=== PATIENT | female | born 1960 | race Caucasian/White ===

== ENCOUNTER 2018-05-12 09:36 | Emergency (ER) | payer BC, SELFPAY ==
[2018-05-12 09:39] VITALS: BP 108/71; PULSE 90; RESP 14; TEMP 36.3; O2SAT 98
--- NOTE | 2018-05-12 10:44 | DI.CT_ITS ---
SYMPTOMS/DIAGNOSIS: ANTERIOR NECK AND SHOULDER PAIN, DIFFICULTY SWALLOWING CERVICAL CT: CT examination of the cervical region was performed with intravenous infusion of 100 cc's of Omnipaque 350. Images obtained through the lung apices show clear lungs and unremarkable appearance of visualized mediastinal structures. No vascular abnormality identified in superior mediastinum or cervical region. The [place] vasculature appears intact. The orbits and temporal bone structures are unremarkable. No intracranial abnormality in the visualized portions of the brain. No cervical mass or adenopathy seen. The epiglottis and aryepiglottic folds appears intact. There is loss of fat planes in the supraglottic region and suggestion of diffuse soft tissue swelling in the supraglottic region raises the possibility of supraglottitis. The trachea is unremarkable in appearance. The vocal cords appear closed. CONCLUSION: Findings raising the possibility of supraglottitis. No evidence of epiglottitis.
[2018-05-12] MEDS: Omnipaque 350 MG/ML 100 ML BTL IV (11:08)
[2018-05-12 11:11] LABS: Abs Immature Grans 0.05 k/cumm (0.0-0.09); Absolute Eosinophil Count 0.05 k/cumm (0.0-0.7); Absolute Lymphocyte Count 3.23 k/cumm (1.2-3.4); Absolute Neutrophil Count 9.19 k/cumm (1.2-6.7); Basophils % 0.1; Eosinophils % 0.4; HCT 42.7 % (36.0-46.0); HGB 14.2 g/dL (12.0-15.5); Immature Grans % 0.4; Lymphocytes % 24.2; Mean Corp. HGB Concentration 33.3 g/dL (32.0-36.0); Mean Corpuscular Volume 96.2 fL (80-95); Mean Platelet Volume 10.5 fL (8.0-11.0); Neutrophils % 68.9; Platelet Count 280 x1000/uL (130-400); RBC 4.44 m/cumm (4.00-5.20); White Blood Cell Count 13.34 k/cumm (4.4-10.8)
[2018-05-12 11:18] LABS: Absolute Basophil Count 0.01 k/cumm (0.0-0.2)
[2018-05-12 11:37] LABS: ALT 34 U/L (12-78); AST 21 U/L (15-37); Alkaline Phosphatase 127 U/L (46-116); Anion Gap 9.1 mmol/L (3-11); BUN 11 mg/dL (7-18); Bilirubin, Total 0.6 mg/dL (0.2-1.0); CO2 28.9 mmol/L (21.0-32.0); CREATININE 0.67 mg/dL (0.55-1.02); Calcium 9.1 mg/dL (8.5-10.1); Chloride 101 mmol/L (98-107); Glucose 115 mg/dL (70-100); Potassium 4.2 mmol/L (3.5-5.1); Sodium 139 mmol/L (136-145); TSH 1.05 uIU/mL (0.358-3.74); Total Protein 8.2 g/dL (6.4-8.2)
[2018-05-12 11:40] LABS: Troponin I < 0.02 ng/mL (0.00-0.06)
--- NOTE | 2018-05-12 12:56 | W.ED.GENAD ---
Discharge Plan Disposition Patient Disposition: HOME Condition: Good Discharge Details Chief Complaint: Nk/Back Pain Clinical Impression: Supraglottitis, Biphasic anterior T wave inversion Primary Care Provider: Adrian Parkinson ED Provider: Frederick Phoenix Home Meds and New Rx's Prescriptions: New clindamycin HCl 150 mg capsule 450 mg PO TID 10 Days Qty: 90 RF: 0 Discharge Instructions Instructions: Laryngitis (ED) Additional Instructions: Please go directly to [facility]. Please go to Dr. Gonzalez's office, they are waiting for you. We will also be setting up cardiology follow-up on an outpatient basis for you. If you notice any worsening of your symptoms, or any new symptoms such as difficulty swallowing, difficulty breathing vomiting, diarrhea, fever, chills, shortness of breath, chest pain, numbness, weakness, or fainting , please return immediately to the emergency department for reevaluation. Please follow up with your primary care provider as soon as possible for reassessment and reevaluation. As always, it was a pleasure participating in your medical care today. Discharge Data Discharge Date/Time-TO BE ENTERED AT DEPARTURE: 05/12/18 13:30 Medical Decision Making This is a very pleasant 57-year-old female who presents for evaluation of neck and shoulder pain, gradually worsening, eventually leading to mild difficulty and pain with swallowing. Physical exam demonstrates a well-appearing female, no signs of respiratory distress. She has no stridorous breath sounds, no difficulty breathing, and no change in her phonation. She demonstrates no evidence of a hot potato voice, and no signs of airway compromise. She is controlling her secretions well. Physical exam demonstrates no other significant abnormalities otherwise. Differential was initially broad, atypical cardiac etiology was considered as well as potential acute neck pathology. Laboratory workup did demonstrate a mildly elevated white count at 13.3, electrolytes, sodium, renal function, and troponin as well as TSH were all normal. CT scan was ordered and per radiology does demonstrate evidence of supraglottitis. In the setting of the patient's elevated white count, her pain with swallowing, her subjective symptoms, and the CT findings I do feel that this is the most likely etiology for her symptoms. We did contact Dr. Gonzalez and Tucker and discussed the case with him. We will give a dose of clindamycin here, and he recommends that the patient be sent over immediately to his office for scoping and evaluation. With no signs of respiratory distress, normal vital signs, no signs of airway compromise, I feel that this is certainly reasonable and that the patient is safe to transport herself. The patient is requesting transport herself and does not want an EMS transport. Patient will drive directly to [place], I showed the patient exactly on the map work to go and she has a history at [place], and knows the office location well. I have extensively reviewed the treatment plan and discharge instructions with the patient. I have addressed all patient concerns at this time. The patient was made aware of what symptoms to monitor for that would warrant a return to the emergency department. Discussed the plan with the patient, they demonstrate verbal understanding and agreement with our assessment and plan at this time. Additionally the patient's troponin was normal, EKG was ordered and did demonstrate evidence of biphasic T waves. Although I feel the patient symptomatology correlates well with her supraglottitis, the EKG findings did elicit some concern for potential Wellons on EKG. I contacted [facility], and discussed the case with Dr. Kim. I discussed the patient's laboratory workup, I sent him via secure text message the image of the EKG which she personally reviewed, as well as discussed the patient's clinical scenario, and her signs and symptoms concerning for supraglottitis. With all factors discussed, Dr. Suh does feel that these biphasic T waves are a nonspecific abnormality and not related to a well in syndrome especially in light of the patient's current clinical scenario. I do agree with this is the patient has no chest pain, no shortness of breath, no chest pressure, no significant cardiac risk factors. Her heart score is less than 3. Dr. Kim does recommend outpatient cardiology follow-up, but no acute component at this time. I have discussed this with case management we will get her cardiology follow-up. 12: 10 EKG rate 70, intervals normal, sinus rhythm, biphasic T waves noted in V2, V3, V4, V5, and V6. No ST elevations or depressions. No significant Q waves. HPI General Date/Time Provider Initiated Documentation: 05/12/18 10:08. 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 She presents today for evaluation of neck pain and difficulty swallowing. 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 She had no associated chest tightness, shortness of breath, pleuritic chest pain, or chest heaviness. The pain symptoms continued throughout the next 24-48 hours and gradually worsened, radiating towards her anterior neck. Fortunately this morning when she woke up she was noticing a mild increase in pain/difficulty swallowing. This did increase her concerned and she came to the ER for evaluation. She denies any difficulty eating or drinking, and has no difficulty getting her secretions down. The patient denies any cough, or any other cardiac or chest complaints. She denies any exertional component of her symptoms. She denies any fever or chills. She has no other complaints at this time. She denies any previous recent surgeries, she denies any IV or illicit drug use. Related Data Home Medications Medication Instructions Recorded Confirmed clindamycin HCl 450 mg PO TID 10 Days #90 cap 05/12/18 Previous Rx's Medication Instructions Recorded clindamycin HCl 450 mg PO TID 10 Days #90 cap 05/12/18 Allergies Allergy/AdvReac Type Severity Reaction Status Date / Time phenytoin Allergy Intermediate Unverified 01/09/18 09:17 General Stated Complaint: Nk/Back Pain OSVALDO: 2 Review of Systems Review of Systems All systems reviewed & are unremarkable except as noted in HPI and below PFSH Family History Mother Neoplasm Father Neoplasm Sister No problems noted. Brother Heart disease Brother No problems noted. Brother No problems noted. Brother No problems noted. Brother Depression Brother Essential hypertension Brother Essential hypertension Grandfather Heart disease Grandfather Heart disease Grandmother Heart disease Grandmother No problems noted. Sister Parkinson's disease Medical History Elevated fasting glucose Tobacco dependence Social History Smoking/Tobacco Use Status: Current every day Surgical History Cholecystectomy (08/04/16) FOOT SURGERY (~1970) Tooth extraction Exam Narrative Exam Narrative: 1.Const: Well-nourished, Well-developed, appearing stated age 2.Eyes: PERRL, no conjunctival injection, and symmetrical lids. 3.ENT: Atraumatic external nose and ears. Moist MM. Neck: Symmetric, trachea midline, No thyromegaly. No significant tenderness on exam, no significant crepitus. No evidence of Anton's angina. Patient demonstrates good movement of cervical neck. There is no nuchal rigidity, no nuchal tenderness. Patient is able to flex the neck without any difficulty or significant pain. Negative Kernig's and Brudzinski sign. 4.CVS: +S1/S2, No murmurs or gallops. Peripheral pulses 2+ and equal in all extremities. Brisk capillary refill in all extremities. 5.RESP: Unlabored respiratory effort. Clear to auscultation bilaterally. No wheezes rales or rhonchi 6.GI: Soft, Nontender/Nondistended, No hepatosplenomegaly. No guarding or rebound. 7.MSK: Normocephalic/Atraumatic, Extremities w/o deformity or ttp No cyanosis or clubbing, Normal movement of all extremities 8.Skin: Warm, Dry. No rashes or lesions. 9.Neuro: health unit coordinator II-XII grossly intact. Sensation grossly intact, no focal neurologic deficits. 10.Psych: (AAO) x3. Appropriate mood and affect Course Vital Signs Temperature 36.3 C L 05/12/18 09:39 Pulse 90 05/12/18 09:39 Respiratory Rate 14 05/12/18 09:39 Blood Pressure 108/71 05/12/18 09:39 Pulse Oximetry 98 05/12/18 09:39 Temperature 36.3 C L 05/12/18 09:39 Temperature Source Temporal Artery Scan 05/12/18 09:39 Pulse 90 05/12/18 09:39 Respiratory Rate 14 05/12/18 09:39 Respiratory Effort 05/12/18 11:29 Blood Pressure 108/71 05/12/18 09:39 Blood Pressure Position Sitting 05/12/18 09:39 Pulse Oximetry 98 05/12/18 09:39 Oxygen Delivery Method Room Air 05/12/18 09:39 Oxygen Flow Rate 0 05/12/18 09:39 Pain Level 7 05/12/18 09:39 Lab/Test Results Lab/Test Results: Laboratory Tests Range/Units 05/12/18 05/12/18 11:06 11:06 WBC (4.4-10.8) k/cumm 13.34 H RBC (4.00-5.20) m/cumm 4.44 Hgb (12.0-15.5) g/dL 14.2 Hct (36.0-46.0) % 42.7 MCV (80-95) fL 96.2 H MCH (27.0-33.0) pg 32.0 MCHC (32.0-36.0) g/dL 33.3 RDW (11.7-14.6) % 14.0 Plt Count (130-400) x1000/uL 280 MPV (8.0-11.0) fL 10.5 Immature Gran % 0.4 Neutrophils % 68.9 Lymphocytes % 24.2 Monocytes % 6.0 Eosinophils % 0.4 Basophils % 0.1 Absolute Neutrophils (1.2-6.7) k/cumm 9.19 H Absolute Lymphocytes (1.2-3.4) k/cumm 3.23 Absolute Monocytes (0.11-0.7) k/cumm 0.80 H Absolute Eosinophils (0.0-0.7) k/cumm 0.05 Absolute Basophils (0.0-0.2) k/cumm 0.01 Sodium (136-145) mmol/L 139 Potassium (3.5-5.1) mmol/L 4.2 Chloride (98-107) mmol/L 101 Carbon Dioxide (21.0-32.0) mmol/L 28.9 Anion Gap (3-11) mmol/L 9.1 BUN (7-18) mg/dL 11 Creatinine (0.55-1.02) mg/dL 0.67 Estimated GFR/1.73 m2 (mL/min/1.73m2) >= 60.00 Glucose (70-100) mg/dL 115 H Calcium (8.5-10.1) mg/dL 9.1 Total Bilirubin (0.2-1.0) mg/dL 0.6 AST (15-37) U/L 21 ALT (12-78) U/L 34 Alkaline Phosphatase (46-116) U/L 127 H Troponin I (0.00-0.06) ng/mL < 0.02 Total Protein (6.4-8.2) g/dL 8.2 Albumin (3.4-5.0) g/dL 4.0 TSH (0.358-3.74) uIU/mL 1.05
[2018-05-12] MEDS: Clindamycin 150 MG CAP 450 MG PO (13:07)
[2018-05-12 13:10] VITALS: BP 108/71; PULSE 90; RESP 14; TEMP 36.3; O2SAT 98
--- NOTE | 2018-05-15 08:41 | PDOC.ERCMPRO ---
Care Management Progress Note 05/15-Dr. Phoenix requested assistance with a cardiology f/u in one month for biphasic T wave. Referral faxed to cardiology this am.
== END 2018-05-12 13:30 | disposition home or self-care (01) ==
PROVIDERS: Emergency Provider Student in an Organized Health Care Education/Training Program; PCP Family Medicine
DX: J04.30 Supraglottitis, unspecified, without obstruction (principal); R94.31 Abnormal electrocardiogram [ECG] [EKG]; R13.10 Dysphagia, unspecified
CPT/HCPCS: 36415; 70491; 80053; 93005; 99285; 84443; 84484; 85025; 93010; J1885; J3490

== ENCOUNTER 2018-06-19 10:21 | Outpatient (CLI) | payer BC, SELFPAY | END 2018-06-19 10:41 | PROVIDERS: PCP Family Medicine; Visit Provider Internal Medicine Interventional Cardiology | DX: R94.31 Abnormal electrocardiogram [ECG] [EKG] (principal); R00.2 Palpitations; F17.200 Nicotine dependence, unspecified, uncomplicated | CPT/HCPCS: 93005; 93010 ==

== ENCOUNTER 2018-07-11 03:00 | Outpatient (CLI) | payer BC, SELFPAY ==
--- NOTE | 2018-08-03 10:14 | ZIOP_ITS ---
ZIO PATCH INTERPRETATION DATE OF DICTATION August 03, 2018 INDICATION Palpitations. Total Analysis time - 12 days and 4 hours. Predominant underlying rhythm is sinus rhythm. Average heart rate during analysis time is 84 beats per minute. Minimum heart rate 50 beats per minute. Maximum heart rate 151 beats per minute. Rare isolated atrial ectopy. Rare isolated ventricular ectopy. No nonsustained VT. No significant pauses. No SVT or atrial fibrillation. 3 patient triggered events correspond to sinus rhythm. No diary entries. Overall sinus rhythm throughout with no significant tachy or bradyarrhythmias. Milli Garcia M.D. ADITI/earline T - 08/03/2018
== END 2018-07-11 03:20 ==
PROVIDERS: PCP Family Medicine; Visit Provider Internal Medicine Interventional Cardiology
DX: R00.2 Palpitations (principal); I49.1 Atrial premature depolarization; I49.3 Ventricular premature depolarization
CPT/HCPCS: 93225

== ENCOUNTER 2018-09-13 10:05 | Outpatient (CLI) | payer BC, SELFPAY | END 2018-09-13 10:25 | PROVIDERS: PCP Family Medicine; Visit Provider Internal Medicine Interventional Cardiology | DX: R94.31 Abnormal electrocardiogram [ECG] [EKG] (principal); F17.200 Nicotine dependence, unspecified, uncomplicated | CPT/HCPCS: 93005; 93010 ==

== ENCOUNTER 2019-01-17 01:16 | Outpatient (CLI) | payer BC, SELFPAY ==
[2019-01-17 08:26] LABS: Anion Gap 9.7 mmol/L (3-11); BUN 12 mg/dL (7-18); CO2 27.3 mmol/L (21.0-32.0); CREATININE 0.68 mg/dL (0.55-1.02); Calcium 8.7 mg/dL (8.5-10.1); Chloride 104 mmol/L (98-107); Glucose 106 mg/dL (70-100); Potassium 4.7 mmol/L (3.5-5.1); Sodium 141 mmol/L (136-145)
[2019-01-18 08:45] LABS: Hemoglobin A1C 6.1 % (4.5-6.2)
== END 2019-01-17 01:36 ==
PROVIDERS: PCP Family Medicine; Visit Provider Family Medicine
DX: R73.01 Impaired fasting glucose (principal)
CPT/HCPCS: 36415; 80048; 83036

== ENCOUNTER 2019-01-24 13:33 | Day surgery (SDC) | payer BC, SELFPAY ==
[2019-01-24 13:33] VITALS: BP 125/76; PULSE 96; RESP 18; TEMP 36.6; O2SAT 97
[2019-01-24] MEDS: Lidocaine 2% Pres-Free 5 ML VIAL (16:11)
--- NOTE | 2019-01-24 16:36 | W.PM.DSUDISC ---
Discharge Plan Disposition Patient Disposition: HOME Condition: Good Discharge Details Reason For Visit: Excision ganglion cyst RRF Attending Provider: Justus Oneill Primary Care Provider: Adrian Parkinson Home Meds and New Rx's Prescriptions: No Action No Known Home Meds RF: 0 Discharge Instructions Additional Instructions: keep dressings dry for 48 hours. After 48 hours, may remove dressings, shower or bathe and get incision wet. After 48 hours, leave incision uncovered if it is dry and sealed. Use R hand as much as discomfort allows you. Follow up with in 10-14 days. Take tylenol or ibuprofen, if needed for pain. Referrals: Justus Oneill MD [ [facility] STAFF PHYSICIAN] - (f/u in 10-14 days) Activity:: Activity as Tolerated Remove Dressings/Wound Care:: 48 hours Shower/Bathe:: 48 hours Diet:: As Tolerated Discharge Orders Discharge Orders: Discharge Order (Routine); Ordered 01/24/19 Ordered By: Justus Oneill DS: Diagnosis Discharge Diagnosis (1) Sebaceous cyst of finger of right hand: Status: Chronic (2) Ganglion cyst of finger: Status: Acute
--- NOTE | 2019-01-26 05:56 | ROE_ITS ---
REPORT OF OPERATIVE PROCEDURE DATE OF SURGERY January 24, 2019 PREOPERATIVE DIAGNOSIS Ganglion cyst, right ringer finger. POSTOPERATIVE DIAGNOSIS Ganglion cyst, right ringer finger. PROCEDURE Incision of ganglion cyst, right ring finger. ANESTHESIA Local infiltration 2% Xylocaine solution and 0.5% Marcaine with epinephrine solution. SURGEON Justus Oneill M.D. INDICATIONS This is a 58-year-old white female who developed a ganglion cyst on the dorsal radial aspect of her r ight ring finger several months ago. The cyst has been painful as it enlarged. It rubs against her mi ddle finger and causes discomfort. Excision of the cyst was recommended to alleviate her symptoms. Th e risks and complications of the procedure were explained to the patient in detail preop including po ssible damage to the radial digital nerve with dissection. DESCRIPTION OF PROCEDURE The patient was taken to the Operating Room on 01/24/19. She was placed supine on the operating table. The right hand was prepped and draped free in the usual sterile fashion. I infiltrated from the radia l side of the ring finger overlying the ganglion, which was about mid proximal phalanx with 2% Xyloca ine solution. I then infiltrate more proximal and more palmar to block the radial digital nerve. Once good anesthesia had been obtained, I made a longitudinal incision in the mid lateral line centered o tripp the ganglion cyst. The incision was about 1.5 inches in length. The [place] [facility] [place]. Blunt tip Littler scissors were then used to circumferentially expose the ganglion cyst. The ga nglion cyst was inadvertently perforated during dissection. There was normal ganglion fluid noted brittani t came from the cyst. The cyst was intermittently scared to the digital nerve and the digital nerve w as inadvertently cut during the dissection. The patient was immediately notified and I explained to er that I felt that this would provide little disability since it is just one half of the tip of the ring finger. Hemostasis was obtained with simple direct pressure after the ganglion cyst was entirely excised. The wound margins were infiltrated with 0.5% Marcaine with epinephrine solution and the ski n edges were approximated with three interrupted #4-0 Nylon sutures. The wound was dressed with Xerof orm gauze, sterile gauze, 4x4s, wrapped with a 2-inch cling bandage. The patient tolerated the proced ure well and was discharged to the Day Surgery unit in good condition. The patient was discharged home from the Day Surgery Unit with instructions to keep her dressings int act and dry for 48 hours. After 48 hours, she can remove her dressing, shower and get her incision we t. She can leave the incision uncovered when it is dry and sealed. She is encouraged to use her right hand as much as discomfort allows. She should take Tylenol or ibuprofen for pain. She will followup with Dr. Oneill in 10 to 14 days.
== END 2019-01-24 16:49 | disposition home or self-care (01) ==
PROVIDERS: PCP Family Medicine; Visit Provider Orthopaedic Surgery
PROC: (CPT 26160; principal; 2019-01-24 16:00)
DX: M67.441 Ganglion, right hand (principal); G97.49 Accidental puncture and laceration of other nervous system organ or structure during other procedure; Y65.8 Other specified misadventures during surgical and medical care
CPT/HCPCS: 26160

== ENCOUNTER 2020-07-30 14:37 | Emergency (ER) | payer OTHER, SELFPAY ==
[2020-07-30 14:45] VITALS: BP 120/60; PULSE 90; RESP 18; TEMP 37; O2SAT 98
--- NOTE | 2020-07-30 14:45 | DI.RAD_ITS ---
EXAM: XR ANKLE RT COMPLETE CLINICAL HISTORY: Right ankle injury, R/O Fracture. TECHNIQUE: 2D digital imaging was performed. COMPARISON: No exams were available for comparison FINDINGS: There is a transverse fracture of the lateral malleolus with overlying soft tissue swelling. The med ial malleolus and posterior malleolus are intact as is the talar dome. There is no widening of the m ortise evident. Bone density normal. No osseous lesions IMPRESSION: Transverse fracture of the lateral malleolus, nondisplaced. DATA REPOSITORY: RADIATION DOSE DELIVERED:
--- NOTE | 2020-07-30 15:09 | W.ED.GENAD ---
Discharge Plan Disposition Patient Disposition: HOME Condition: Stable Discharge Details Clinical Impression: Fracture of lateral malleolus of right ankle Primary Care Provider: Adrian Parkinson ED Provider: Sulema Broussard Home Meds and New Rx's Prescriptions: No Action No Known Home Meds RF: 0 Discharge Instructions Instructions: Ankle Fracture (ED) Additional Instructions: Rest, ice, compression, elevation. Stay off ankle as much as possible. Wear boot as directed. Use crutches. Follow-up with orthopedics in 3 to 5 days. Please take Tylenol or Ibuprofen with food every 4-6 hours as needed for pain and swelling. Stand Alone Forms: Work Release Referrals: Adriano Kimble MD [ [facility]FF [facility]YSICIAN] - Discharge Data Discharge Date/Time-TO BE ENTERED AT DEPARTURE: 07/30/20 15:59 Medical Decision Making 60-year-old female presents to the ED with chief complaint of right ankle pain. She states that she stepped off a curb and inverted her right ankle. She has increased pain with weightbearing, lateral malleolus swelling and tenderness with palpation. Intact dorsal pedal pulses, CMS is intact just distal to the injury. She has no tenderness noted proximally to the injury. No other complaints at this time. She did not take any medications prior to arrival. FINDINGS: There is a transverse fracture of the lateral malleolus with overlying soft tissue swelling. The medial malleolus and posterior malleolus are intact as is the talar dome. There is no widening of the mortise evident. Bone density normal. No osseous lesions IMPRESSION: Transverse fracture of the lateral malleolus, nondisplaced. Discussed x-ray results with patient who verbalized understanding. Given a walking boot and crutches, demonstrated use, tolerated well. Patient placed on the follow-up list for orthopedics. Instructed to take Tylenol or ibuprofen, rest ice compression elevation. Instructed on nonweightbearing as much as possible. HPI General Mode of arrival: ambulatory. Date/Time Provider Initiated Documentation: 07/30/20 14:38. Limitations to Documentation: no limitations. Information obtained by: patient. HPI Narrative: 60-year-old female presents to the ED with chief complaint of right ankle pain. She states that she stepped off a curb and inverted her right ankle. She has increased pain with weightbearing, lateral malleolus swelling and tenderness with palpation. Intact dorsal pedal pulses, CMS is intact just distal to the injury. She has no tenderness noted proximally to the injury. No other complaints at this time. She did not take any medications prior to arrival. Related Data Home Medications Medication Instructions Recorded Confirmed Unknown [No Known Home Meds] 05/29/18 07/30/20 Allergies Allergy/AdvReac Type Severity Reaction Status Date / Time phenytoin Allergy Intermediate Unverified 07/30/20 14:50 General Stated Complaint: Orthopedic OSVALDO: 3 Review of Systems All systems reviewed & are unremarkable except as noted in HPI and below Musculoskeletal Musculoskeletal: Reports arthralgias and Reports joint swelling (Right ankle) [facility] Medical History (Updated 07/30/20 @ 15:31 by Sulema Broussard) Elevated fasting glucose Tobacco dependence Surgical History Cholecystectomy (08/04/16) FOOT SURGERY (~1970) CYST REMOVAL Tooth extraction TOOTH REMOVAL Family History Mother , 62 Uterine cancer Father , 69 Prostate cancer Sister No problems noted. Brother Heart disease stent Brother , premature No problems noted. Brother , premature No problems noted. Brother , Hole in heart No problems noted. Brother , suicide at age 25. Depression Brother Essential hypertension Brother Essential hypertension Maternal Grandfather , 94 Heart disease Paternal Grandfather , 92 Heart disease Maternal Grandmother , 90 Heart disease Sister , 70 Parkinson's disease Social History Smoking/Tobacco Use Status: Current every day Tobacco Type: cigarettes Tobacco: How many years used: 42 Quit status: has quit before Smoking risk assessment performed?: Yes Alcohol Intake: former Drug use: Never Substance use type: former substance user Caregiver/Support person: No Household members: spouse Housing: house Communication Needs: Corrective Lenses Do you need help understanding health information?: Rarely Pets and animals: Yes Pets and animals: dog(s) Sexually active: Yes Do you think of yourself as: straight/heterosexual Current gender identity: female What is your relationship status?: How often do you talk on the phone with friends or family?: three or more times per week How often do you get together with friends or relatives?: decline to answer How often do you attend baptism or yarsanism services?: decline to answer Do you belong to any clubs or organized social groups?: decline to answer Panel score (0-1 are the most socially isolated patients): 2 What type of physical activity do you participate in: walking Duration: > 90 minutes/day Frequency: daily [place]/Taoist: No preference Special rica needs: No Seatbelt use: always Drive intox or ride w/intox pile driver operator: No Do you feel safe at home: Yes Do you feel safe in your relationship?: Yes Exam Narrative Exam Narrative: Constitutional: Alert and oriented x3. Appears stated age. Normal body habitus. Head: Normocephalic, no trauma. Chest: RRR, Normal S1, S2, distal pulses intact. Resp: Lungs clear to auscultation bilaterally, no wheezes, rales, or rhonchi. Musculoskeletal: Right lateral malleolus tenderness and swelling noted. Intact dorsal pedal pulses. Foot is pink warm dry, no tenderness palpated proximally over tib-fib. Skin: No suspicious rashes or lesions. Capillary refill less than 2 sec. Neurologic: Cranial nerves II-XII intact. Alert and oriented x 3. DTR's intact. Course Vital Signs Vital signs: Vital Signs Temperature 37 C 07/30/20 14:45 Pulse 90 07/30/20 14:45 Respiratory Rate 18 07/30/20 14:45 Blood Pressure 120/60 07/30/20 14:45 Pulse Oximetry 98 07/30/20 14:45 Temperature 37 C 07/30/20 14:45 Temperature Source Temporal Artery Scan 07/30/20 14:45 Pulse 90 07/30/20 14:45 Respiratory Rate 18 07/30/20 14:45 Blood Pressure 120/60 07/30/20 14:45 Blood Pressure Position Sitting 07/30/20 14:45 Pulse Oximetry 98 07/30/20 14:45 Oxygen Delivery Method Room Air 07/30/20 14:45 Oxygen Flow Rate 0 07/30/20 14:45
[2020-07-30] MEDS: Acetaminophen 500 MG TAB PO (15:16)
== END 2020-07-30 15:59 | disposition home or self-care (01) ==
PROVIDERS: Emergency Provider Registered Nurse Emergency; PCP Family Medicine
DX: S82.64XA Nondisplaced fracture of lateral malleolus of right fibula, initial encounter for closed fracture (principal); W10.1XXA Fall (on)(from) sidewalk curb, initial encounter; X50.9XXA Other and unspecified overexertion or strenuous movements or postures, initial encounter; Y99.0 Civilian activity done for income or pay
CPT/HCPCS: 27786; 73610

== ENCOUNTER 2020-08-06 12:46 | Outpatient (CLI) | payer OTHER, SELFPAY ==
--- NOTE | 2020-08-06 09:00 | DI.RAD_ITS ---
EXAM: XR ANKLE RT COMPLETE CLINICAL HISTORY: f/u fracture. TECHNIQUE: 2D digital imaging was performed. COMPARISON: CR XR ANKLE RT COMPLETE from 07/30/2020 FINDINGS: Again noted is a nondisplaced fracture of the lateral malleolus. This is radiographically unchanged from 07/30/2020. No displacement nor widening of the mortise on these nonstress views. Talar dome a ppears unremarkable. No osseous lesions evident. IMPRESSION: No radiographic change from 07/30/2020 DATA REPOSITORY: RADIATION DOSE DELIVERED:
== END 2020-08-06 13:06 ==
PROVIDERS: PCP Family Medicine; Visit Provider Physician Assistant
DX: S82.64XA Nondisplaced fracture of lateral malleolus of right fibula, initial encounter for closed fracture (principal)
CPT/HCPCS: 73610

== ENCOUNTER 2020-09-10 08:12 | Outpatient (CLI) | payer OTHER, SELFPAY ==
--- NOTE | 2020-09-10 08:19 | DI.RAD_ITS ---
EXAM: XR ANKLE RT COMPLETE CLINICAL HISTORY: f/u fracture. TECHNIQUE: 2D digital imaging was performed. COMPARISON: CR XR ANKLE RT COMPLETE from 08/06/2020 FINDINGS: There has been some further healing at the transverse fracture site in the lateral malleolus. Fractu re line is still visible but nondisplaced. No additional fractures identified. No findings in the t alar dome. IMPRESSION: DATA REPOSITORY: RADIATION DOSE DELIVERED:
== END 2020-09-10 08:13 | disposition home or self-care (01) ==
LOC: DIORS 09-11 08:12
PROVIDERS: PCP Family Medicine; Visit Provider Physician Assistant
DX: S82.64XA Nondisplaced fracture of lateral malleolus of right fibula, initial encounter for closed fracture (principal)
CPT/HCPCS: 73610

== ENCOUNTER 2020-10-08 11:18 | Outpatient (CLI) | payer OTHER, SELFPAY ==
--- NOTE | 2020-10-08 09:30 | DI.RAD_ITS ---
EXAM: XR ANKLE RT COMPLETE CLINICAL HISTORY: f/u. TECHNIQUE: 2D digital imaging was performed. COMPARISON: CR XR ANKLE RT COMPLETE from 09/10/2020 FINDINGS: Again noted is a nondisplaced transverse fracture line in the lateral malleolus, appearing unchanged. No displacement. No additional fractures evident. No widening of the mortise. Talar dome unremar kable. IMPRESSION: No significant radiographic change compared to 09/10/2020. DATA REPOSITORY: RADIATION DOSE DELIVERED:
== END 2020-10-08 11:19 | disposition home or self-care (01) ==
LOC: DIORS 11:19
PROVIDERS: PCP Family Medicine; Referring Provider Family Medicine; Visit Provider Student in an Organized Health Care Education/Training Program
DX: S82.64XA Nondisplaced fracture of lateral malleolus of right fibula, initial encounter for closed fracture (principal)
CPT/HCPCS: 73610

== ENCOUNTER 2020-11-05 03:13 | Outpatient (CLI) | payer BC, SELFPAY ==
[2020-11-05 08:11] LABS: Hemoglobin A1C 5.8 % (<5.7)
[2020-11-05 09:03] LABS: ALT 39 U/L (14-59); AST 20 U/L (15-37); Alkaline Phosphatase 113 U/L (46-116); Anion Gap 7.1 mmol/L (3-11); BUN 13 mg/dL (7-18); Bilirubin, Total 0.5 mg/dL (0.2-1.0); CO2 29.9 mmol/L (21.0-32.0); CREATININE 0.7 mg/dL (0.55-1.02); Calcium 8.6 mg/dL (8.5-10.1); Calculated LDL 91 mg/dL (<100); Chloride 102 mmol/L (98-107); Cholesterol 145 mg/dL (<200); Glucose 116 mg/dL (74-106); HDL Cholesterol 47 mg/dL (40-60); Potassium 4.4 mmol/L (3.5-5.1); Sodium 139 mmol/L (136-145); Total Protein 7.4 g/dL (6.4-8.2); Triglyceride 36 mg/dL (<150)
== END 2020-11-05 03:14 | disposition home or self-care (01) ==
LOC: LBO 03:13
PROVIDERS: PCP Family Medicine; Visit Provider Family Medicine
DX: Z00.00 Encounter for general adult medical examination without abnormal findings (principal); R73.01 Impaired fasting glucose; Z82.49 Family history of ischemic heart disease and other diseases of the circulatory system
CPT/HCPCS: 36415; 80053; 80061; 83036

== ENCOUNTER 2021-02-09 08:47 | Outpatient (REF) | payer BC, SELFPAY ==
--- NOTE | 2021-02-09 08:15 | PAPFT_PTH ---
PATIENT: Sofia Rivera LOC: [facility] U#:[id number] AGE/SX: 60/F ROOM: RE02/09/[address]: Zev River NP : 1960 BED: DIS: 02/09/2021 SPEC #: [id number] RECD: 02/09/21 13:04 STATUS: SABRINA REDominic #: [id number] ELIZ: 02/09/21 08:[address]: Zev River DEPT: [facility] Cytology RECD BY: Awa Sprague Tissues: 1 - CX/ENDOCX FOR PAP SMEARS Procedures: PAP THIN PREP/[facility] Screening HPV DNA PROBE Comments: [id number]
== END 2021-02-09 08:48 | disposition home or self-care (01) ==
LOC: LBN 08:47
PROVIDERS: PCP Nurse Practitioner Family; Visit Provider Nurse Practitioner Family
DX: Z12.4 Encounter for screening for malignant neoplasm of cervix (principal); Z11.51 Encounter for screening for human papillomavirus (HPV)
CPT/HCPCS: 88142; 87624

== ENCOUNTER 2023-01-21 10:33 | Outpatient (REF) | payer BC, SELFPAY ==
--- NOTE | 2023-01-21 10:00 | PAPFT_PTH ---
PATIENT: Sofia Rivera LOC: [facility] U#:[id number] AGE/SX: 62/F ROOM: RE01/21/[address]: Zev River NP : 1960 BED: DIS: 01/21/2023 SPEC #: [id number] RECD: 01/21/23 13:13 STATUS: SABRINA REDominic #: [id number] ELIZ: 01/21/23 10:[address]: Zev River DEPT: [facility] Cytology RECD BY: Awa Sprague Tissues: 1 - CX/ENDOCX FOR PAP SMEARS Procedures: PAP THIN PREP/[facility] Screening HPV DNA PROBE Comments: [id number]
== END 2023-01-21 10:34 | disposition home or self-care (01) ==
LOC: LBN 10:33
PROVIDERS: PCP Nurse Practitioner Family; Visit Provider Nurse Practitioner Family
DX: Z12.4 Encounter for screening for malignant neoplasm of cervix (principal)
CPT/HCPCS: 88142; 87624

== ENCOUNTER 2024-02-07 04:27 | Outpatient (CLI) | payer BC, SELFPAY ==
[2024-02-07 10:46] LABS: Calculated LDL 88 mg/dL (<100); Cholesterol 153 mg/dL (<200); HDL Cholesterol 50 mg/dL (40-60); Triglyceride 76 mg/dL (<150)
== END 2024-02-07 04:28 | disposition home or self-care (01) ==
LOC: LBO 04:27
PROVIDERS: PCP Nurse Practitioner Family; Visit Provider Nurse Practitioner Family
DX: Z13.220 Encounter for screening for lipoid disorders (principal); Z13.1 Encounter for screening for diabetes mellitus; Z13.29 Encounter for screening for other suspected endocrine disorder
CPT/HCPCS: 36415; 80061; 83036; 84443